=== PATIENT | male | born 1965 | race African-American/Black ===

== ENCOUNTER 2021-02-20 18:19 | Emergency (ER) | END 2021-02-20 20:10 | disposition home or self-care (01) | LOC: ERS 18:19 | DX: M25.552 Pain in left hip (principal); G89.29 Other chronic pain; F17.210 Nicotine dependence, cigarettes, uncomplicated | CPT/HCPCS: 99283 ==

== ENCOUNTER 2021-02-22 09:18 | Emergency (ER) | payer OTHER ==
[2021-02-22] MEDS ORDERED: Ibuprofen 800 MG TAB ONE (11:26)
== END 2021-02-22 11:33 ==
LOC: ERS 09:18
DX: M79.605 Pain in left leg (principal); R20.2 Paresthesia of skin; Z87.891 Personal history of nicotine dependence
CPT/HCPCS: 70450

== ENCOUNTER 2021-03-18 09:24 | Emergency (ER) | payer MEDICARE, MEDICAID | END 2021-03-18 10:35 | disposition home or self-care (01) | LOC: ERS 09:24 | DX: M25.552 Pain in left hip (principal); Z87.891 Personal history of nicotine dependence | CPT/HCPCS: 99283 ==